=== PATIENT | female | born 1970 | race Caucasian/White ===

== ENCOUNTER 2024-09-29 06:26 | Emergency (ER) | payer BC, SELFPAY ==
[2024-09-29 06:37] VITALS: BP 210/136
--- NOTE | 2024-09-29 06:55 | ED.GENMED ---
History of Present Illness
<Leticia Conley MD, Resident - Last Filed: 09/29/24 07:36>
General
Chief Complaint: Extremity Pain (non-traumatic)
Source: patient
Exam Limitations: none
Time Seen by Provider: 09/29/24 06:49
Nursing documentation reviewed up to this point in time: agreed with
Travel History
Have you traveled to any high risk areas for coronavirus over the past 14 days?: No
Have you had any contact with someone who has COVID-19?: No
Do you have any symptoms of coronavirus? Fever > 100 degrees, chills, cough, shortness of breath, sore throat, loss of taste or smell, muscle aches, or headache?: Yes
Symptoms:: fever on that resolved by saturday, dry cough and stuffy nose
History of Present Illness
History of Present Illness:
Paloma Kumar is a 54-year-old female with past medical history of hypothyroidism, hypertension and PCOS, on supplement for weight loss presents to the hospital for evaluation of left hip pain. Her left hip pain started on Saturday it was initially
intermittent, sharp and shooting, isolated only to her buttock, but progressively became worse and now it is a continuous throbbing pain in the left buttock radiating into her posterior thigh and calf muscles. As her pain became gradually worse,
she has difficulty in bearing weight on her leg and moving her leg. She states that she was in a long flight to [place], and with entrance, and returned back to [facility] all within 4 days-25 September 2024. She also caught flulike URI symptoms along
with fever during her trip, on she had subjective fevers that resolved by taking Tylenol, beginning Saturday she only had congestion and dry cough without any expectoration. She denies having leg pain leg swelling, redness, hotness, chest
pain, shortness of breath, palpitations, orthopnea, PND, lightheadedness, dizziness, and syncopal episodes.
She is not vaccinated for flu and COVID-19, and did not test herself for flu and COVID
If applicable-neuro sx onset
Onset of symptoms known: No
Time pt last seen normal is known: No
Past History
<Leticia Conley MD, Resident - Last Filed: 09/29/24 07:36>
Past History
ED Past Medical History: HTN, Hypothyroidism and Other (PCOS)
ED Past Surgical History: None
Social History
Tobacco: Non-smoker
Alcohol: Occasional
Drug: None
Living: with family
Employment: Employed
Family History
Family History: Unable to obtain
Review of Systems
<Leticia Conley MD, Resident - Last Filed: 09/29/24 07:36>
Review of Systems
Allergies reviewed?: Yes
Constitutional: Reports no symptoms
EENT: Reports no symptoms
Respiratory: Reports no symptoms
Cardiac: Reports no symptoms
ABD/GI: Reports nausea (Chronic nausea, secondary to Zepbound use.)
: Reports no symptoms
Musculoskeletal: Reports muscle pain (Radiation of the pain into the leg, on the left side) and muscle stiffness
Skin: Reports no symptoms
Neurological: Reports no symptoms
Endocrine: Reports no symptoms
Hematologic/Lymphatic: Reports no symptoms
Psychiatric: Reports no symptoms
Phy Exam
<Leticia Conley MD, Resident - Last Filed: 09/29/24 07:36>
General Physical Exam
General Presentation: well appearing and no apparent distress
General age: appears stated age
General Skin: warm
General Habitus: normal
General Mental: alert
General Hydration: appears well hydrated
ENT Exam
ENT Exam: EOMI and TM's normal
Eye Exam
Eye Exam: PERRL, EOMI and disc sharp
Cardiovascular Exam
Cardiovascular Exam: regular rate/rhythm, no edema, no gallop, no murmur and normal peripheral pulses
Heart Sounds: normal
Pulmonary Exam
Pulmonary Exam: lungs clear, no respiratory distress, no rales, no crackles and no rhonchi
Gastrointestinal Exam
Gastrointestinal Exam: normal bowel sounds, non tender and soft
Neurological Exam
Neurological Exam: alert, oriented x3, no motor deficits and normal reflexs
Musculoskeletal Exam
Musculoskeletal Exam: other (No erythema, tenderness, local rise of temperature in her left calf, bilateral calf circumference equal, dorsalis pedis and posterior tibial pulses 2+ intact bilaterally, straight leg raise test positive on the left
side, range of motion severely limited at left buttock, femoroacetabular impingement)
Skin Exam
Skin Exam: normal color
Psychiatric Exam
Psychiatric Exam: normal mood/affect
Course
<Leticia Conley MD, Resident - Last Filed: 09/29/24 07:36>
Orders/Labs/Results
Orders:
Orders
09/29/24 07:18
Ketorolac [Toradol] 30 mg IM NOW STA
Prednisone [Deltasone] 50 mg PO NOW STA
Vital Signs
Initial and Last Documented VS:
Initial Vital Signs
Temp Pulse Resp BP Pulse Ox
98.2 F 102 22 210/136 98
09/29/24 06:37 09/29/24 06:37 09/29/24 06:37 09/29/24 06:37 09/29/24 06:37
Last Documented Vital Signs
Temp Pulse Resp BP Pulse Ox
98.2 F 102 22 210/136 98
09/29/24 06:37 09/29/24 06:37 09/29/24 06:37 09/29/24 06:37 09/29/24 06:37
<Cruz Balderas DO - Last Filed: 09/29/24 07:19>
Orders/Labs/Results
Orders:
Orders
09/29/24 07:18
Ketorolac [Toradol] 30 mg IM NOW STA
Prednisone [Deltasone] 50 mg PO NOW STA
Vital Signs
Initial and Last Documented VS:
Initial Vital Signs
Temp Pulse Resp BP Pulse Ox
98.2 F 102 22 210/136 98
09/29/24 06:37 09/29/24 06:37 09/29/24 06:37 09/29/24 06:37 09/29/24 06:37
Last Documented Vital Signs
Temp Pulse Resp BP Pulse Ox
98.2 F 102 22 210/136 98
09/29/24 06:37 09/29/24 06:37 09/29/24 06:37 09/29/24 06:37 09/29/24 06:37
<Leticia Conley MD, Resident - Last Filed: 09/29/24 07:36>
MDM/Problems Addressed
Differential Diagnosis Includes:
Pyriformis syndrome, deep gluteal syndrome, ischiofemoral impingement, lumbar spine referred pain-sciatica.
MDM/Problems Addressed:
Sciatica
<Leticia Conley MD, Resident - Last Filed: 09/29/24 07:36>
*Pulse Oximetry
Patient hypoxic: not evaluated
*EKG
Interpreted by ED Provider?: NA
*Critical Care Note
Total Time (30-74mins, 75-104mins- exclusive of procedures): Not Applicable
ED Attending Note
<Leticia Conley MD, Resident - Last Filed: 09/29/24 07:36>
-
Portions of this chart may have been created with voice recognition software.� Occasional wrong word or��sound alike� substitutions may have occurred due to the inherent limitations of voice recognition software.
<Cruz Balderas DO - Last Filed: 09/29/24 07:19>
ED Attending Note
Patient seen and examined by attending physician: Yes
I performed the substantive portion of visit, reviewed & personally made and approve the management plan that is documented in note by myself or PIERCE.: Yes
I performed a history and physical exam of patient and discussed management with resident, I reviewed resident's note and agree with documented findings and plan of care.: Yes
ED Attending Note:
I evaluated the patient at bedside. The patient has symptoms consistent with sciatica. She has very strong DP and PT pulses to the left lower extremity. She has excellent active range of motion and strength of the distal left lower extremity.
There is no left calf tenderness nor swelling. The physical examination is not consistent with DVT. Will hold off on ultrasound imaging but I did offer this to the patient and we agreed to hold off at this time. Will start steroids to help treat
sciatica and we talked about the use of steroids may increase her blood sugars temporarily. Will also give a shot of Toradol currently. She must follow-up with her primary care doctor regarding high blood pressure.
Discharge Plan
Departure
Patient Disposition: Home (Routine Discharge)
Date of Disposition: 09/29/24
Time of Disposition: 07:32
Patient with high blood pressure during this ER visit?: Yes
Discharge Problem:
Sciatica, Sciatica of left side
Instructions: Sciatica (DC), Sciatica Exercises, BLOOD PRESSURE
Prescriptions:
New
prednisone 50 mg tablet
50 mg PO DAILY Qty: 5 0RF
No Action
metformin 500 MG tablet
1,000 mg PO DAILY
levothyroxine 25 MCG tablet
25 mcg PO DAILY
lisinopril 10 MG tablet
10 mg PO DAILY
acetaminophen 325 MG tablet
650 mg PO Q4HPRN PRN (Reason: mild pain) 0RF
oxycodone 10 MG tablet
5 mg PO Q4HPRN PRN (Reason: severe pain when tolerating PO) Qty: 18 0RF
Activity Restrictions/Additional Instructions:
Take steroid dose as prescribed for 5 days.
Follow-up with your primary in 1 week.
Interventions
Interventions:
*Risk Screen - Suicide Last Done: 09/29/24 06:37
*General Assessment Last Done: 09/29/24 06:47
*Neglect/Abuse Screening Last Done: 09/29/24 06:37
ED- Fall Risk Assessment Last Done: 09/29/24 06:47
*ED COVID-19 Vaccine History Last Done: 09/29/24 06:47
ED-Skin Assessment Last Done: 09/29/24 06:47
ED-Peripheral Vascular Assessment Last Done: 09/29/24 06:47
ED-Musculoskeletal Assessment Last Done: 09/29/24 06:47
Discharge Date and Time
Print Language: BULGARIAN
[2024-09-29] MEDS: TORADOL 30 MG IM (07:43)
[2024-09-29] MEDS: DELTASONE 50 MG PO (07:43)
[2024-09-29 07:54] VITALS: BP 155/95
== END 2024-09-29 08:18 | disposition home or self-care (01) ==
LOC: EMR 06:26
PROVIDERS: EMERGENCY PHYSICIAN Emergency Medicine; FAMILY PHYSICIAN Internal Medicine
DX: M54.32 Sciatica, left side (principal); I10 Essential (primary) hypertension; E03.9 Hypothyroidism, unspecified; E28.2 Polycystic ovarian syndrome
CPT/HCPCS: 99284; 96372

== ENCOUNTER → 2025-04-21 10:04 | Outpatient (REF) | payer BC, SELFPAY | LOC: WDC 10:04 | PROVIDERS: ATTENDING PHYSICIAN Internal Medicine Hematology & Oncology; FAMILY PHYSICIAN Internal Medicine | DX: N63.20 Unspecified lump in the left breast, unspecified quadrant (principal); Z85.3 Personal history of malignant neoplasm of breast; C50.919 Malignant neoplasm of unspecified site of unspecified female breast; N63.32 Unspecified lump in axillary tail of the left breast | CPT/HCPCS: 76642; 77062; 77066 ==

== ENCOUNTER → 2025-05-04 07:42 | Outpatient (REF) | payer BC, SELFPAY ==
--- NOTE | 2025-05-04 13:55 | OID.BR.INTR ---
[facility] Breast Navigator - Initial
- -
Date of Contact: 05/04/25
Met with patient. Existing patient of Dr. Morales for prior h/o breast cancer. Will follow up as needed per protocol.
== END ==
LOC: WDC 07:42
PROVIDERS: ATTENDING PHYSICIAN Internal Medicine Hematology & Oncology; FAMILY PHYSICIAN Internal Medicine
DX: N63.32 Unspecified lump in axillary tail of the left breast (principal)
CPT/HCPCS: 88305; 19083; 88341; 88342

== ENCOUNTER → 2025-05-25 18:30 | Outpatient (REF) | payer BC, SELFPAY | LOC: MRI 3T 18:30 | PROVIDERS: ATTENDING PHYSICIAN Surgery; FAMILY PHYSICIAN Internal Medicine | DX: R59.0 Localized enlarged lymph nodes (principal); C80.1 Malignant (primary) neoplasm, unspecified | CPT/HCPCS: 77049; A9585 ==

== ENCOUNTER → 2025-06-17 06:51 | Outpatient (REF) | payer BC, SELFPAY ==
[2025-06-17] VITALS (8 sets, daily range): BP systolic 85–163; BP diastolic 87–123
[2025-06-17 07:14] LABS: Hematocrit 38.0 % (37.0-47.0); Hemoglobin 12.8 g/dL (12.0-16.0); Mean Corp Hgb Conc. 33.7 g/dL (33.0-37.0); Mean Corpuscular Volume 89.2 fL (81.0-99.0); Platelet Count 291 10^3/uL (130-400); Red Cell Dist. Width 13.7 % (11.5-14.5)
[2025-06-17 07:41] LABS: INR 0.96; PT 13.3 Sec (11.4-14.6)
--- NOTE | 2025-06-17 08:10 | PTCARENOTE ---
Pt. to be taking Uber home after procedure. Safe discharge form signed by patient.
== END ==
LOC: RADI 06:51
PROVIDERS: ATTENDING PHYSICIAN Internal Medicine Hematology & Oncology; FAMILY PHYSICIAN Internal Medicine; OTHER PHYSICIAN Physician Assistant
DX: C78.2 Secondary malignant neoplasm of pleura (principal); C50.919 Malignant neoplasm of unspecified site of unspecified female breast
CPT/HCPCS: 32408; 36415; 85027; 85610; 88305; 88333; 88341; 88342; 88360; 99152; 99153

== ENCOUNTER → 2025-09-16 15:57 | Outpatient (REF) | payer BC, SELFPAY | LOC: RAD 15:57 | PROVIDERS: ATTENDING PHYSICIAN Internal Medicine Hematology & Oncology | DX: C50.919 Malignant neoplasm of unspecified site of unspecified female breast (principal) | CPT/HCPCS: 93971 ==